=== PATIENT | female | born 1965 | race Caucasian/White ===

== ENCOUNTER 2016-12-08 08:14 | Day surgery (SDC) | payer OTHER ==
[~2016-12-08] VITALS: Ht 162.6 cm; Wt 67.1 kg
[~2016-12-08 08:14] MED LIST: ATENOLOL50 MG PO; ATIVAN1 MG PO; BABY ASPIRIN81 M1 PO; BRINTELLIX10 MG PO; CALCIUM +D & M1 EACH; CALTRATE 600 +1 EAC1 PO; CELEBREX200 MG PO; CYANOCOBAL1000 MCG/2 IM; CYMBALTA60 MG PO; FISH OIL 1,0001 EAC7 PO; FLEXERIL10 MG PO; LEXAPRO5 MG PO; LYRICA50 MG PO; METHADONE HCL40 MG PO; METHADONE10 MG PO; NEURONTIN400 MG PO; PRILOSEC20 MG PO; PROMETHAZINE HC25 M1 PO; TENORMIN25 MG PO
== END 2016-12-08 10:20 | disposition home or self-care (01) ==
LOC: PAIN 08:14 → SDC 09:00 → PAIN 09:00
PROC: 01583ZZ Destruction of Thoracic Nerve, Percutaneous Approach (ICD-10-PCS; principal; 2016-12-08)
DX: M47.894 Other spondylosis, thoracic region (principal); M47.893 Other spondylosis, cervicothoracic region; F41.1 Generalized anxiety disorder; I10 Essential (primary) hypertension; M54.12 Radiculopathy, cervical region; M79.1 Myalgia
CPT/HCPCS: J1030; J2250; J3010; S0020

== ENCOUNTER 2016-12-15 07:26 | Day surgery (SDC) | payer OTHER | END 2016-12-15 09:42 | disposition home or self-care (01) | LOC: PAIN 07:26 → SDC 08:00 → PAIN 09:42 | PROC: 015B3ZZ Destruction of Lumbar Nerve, Percutaneous Approach (ICD-10-PCS; principal; 2016-12-15) | DX: M47.812 Spondylosis without myelopathy or radiculopathy, cervical region (principal); M54.2 Cervicalgia; I10 Essential (primary) hypertension; F31.9 Bipolar disorder, unspecified; Z87.898 Personal history of other specified conditions; G56.00 Carpal tunnel syndrome, unspecified upper limb; F10.20 Alcohol dependence, uncomplicated; F17.210 Nicotine dependence, cigarettes, uncomplicated; Z91.09 Other allergy status, other than to drugs and biological substances | CPT/HCPCS: J1030; J2250; J3010; S0020 ==

== ENCOUNTER 2018-02-20 08:05 | Day surgery (SDC) | payer OTHER ==
[~2018-02-20] VITALS: Ht 162.6 cm; Wt 64.4 kg
[~2018-02-20 08:05] MED LIST changes: +CYMBALTA30 MG PO; +DOLOPHINE HCL10 MG PO; +LYRICA75 MG PO; +MULTIPLE VITAM1 EAC4 PO; +OMEPRAZOLE40 M1 PO; -PRILOSEC20 MG PO; +SKELAXIN800 MG PO; +TENORMIN50 MG PO
== END 2018-02-20 09:40 | disposition home or self-care (01) ==
LOC: PAIN 08:05
DX: M47.814 Spondylosis without myelopathy or radiculopathy, thoracic region (principal); M47.812 Spondylosis without myelopathy or radiculopathy, cervical region; M54.12 Radiculopathy, cervical region; G89.21 Chronic pain due to trauma; M19.90 Unspecified osteoarthritis, unspecified site; F17.200 Nicotine dependence, unspecified, uncomplicated; M47.816 Spondylosis without myelopathy or radiculopathy, lumbar region; M50.90 Cervical disc disorder, unspecified, unspecified cervical region; Z79.891 Long term (current) use of opiate analgesic; F10.21 Alcohol dependence, in remission
CPT/HCPCS: J1030; J1885; J2250; S0020

== ENCOUNTER 2018-02-27 07:56 | Day surgery (SDC) | payer OTHER ==
[~2018-02-27] VITALS: Ht 162.6 cm; Wt 64.4 kg
== END 2018-02-27 10:35 | disposition home or self-care (01) ==
LOC: PAIN 07:56 → SDC 08:30 → PAIN 08:30
PROC: 3E0T3TZ Introduction of Destructive Agent into Peripheral Nerves and Plexi, Percutaneous Approach (ICD-10-PCS; principal; 2018-02-27)
PROC: BR141ZZ Fluoroscopy of Cervical Facet Joint(s) using Low Osmolar Contrast (ICD-10-PCS; principal; 2018-02-27)
DX: M47.812 Spondylosis without myelopathy or radiculopathy, cervical region (principal); M50.90 Cervical disc disorder, unspecified, unspecified cervical region; M47.814 Spondylosis without myelopathy or radiculopathy, thoracic region; M47.816 Spondylosis without myelopathy or radiculopathy, lumbar region; M54.16 Radiculopathy, lumbar region; M53.3 Sacrococcygeal disorders, not elsewhere classified; I10 Essential (primary) hypertension; F41.9 Anxiety disorder, unspecified; F10.21 Alcohol dependence, in remission; F17.200 Nicotine dependence, unspecified, uncomplicated
CPT/HCPCS: J1030; J2250; S0020

== ENCOUNTER 2018-05-15 13:47 | Emergency (ER) | payer OTHER ==
[~2018-05-15] VITALS: Ht 162.6 cm; Wt 65.3 kg
[2018-05-15 16:10] VITALS: BP 196/90
== END 2018-05-15 16:12 | disposition home or self-care (01) ==
LOC: EME 13:47
DX: M62.830 Muscle spasm of back (principal); M54.5 Low back pain; G89.29 Other chronic pain; Z88.5 Allergy status to narcotic agent
CPT/HCPCS: 99281; 99283; J1100; J1885

== ENCOUNTER 2018-06-12 09:23 | Day surgery (SDC) | payer OTHER ==
[~2018-06-12] VITALS: Ht 162.6 cm; Wt 64.4 kg
[~2018-06-12 09:23] MED LIST changes: +FLECTOR 1.3%1 PATC1 TD
[2018-06-15] MEDS ORDERED: YUVAFEM10 MCG VG (10:40)
== END 2018-06-12 11:30 | disposition home or self-care (01) ==
LOC: PAIN 09:23 → SDC 10:00 → PAIN 11:30
DX: M47.812 Spondylosis without myelopathy or radiculopathy, cervical region (principal); M54.12 Radiculopathy, cervical region; M79.1 Myalgia; M47.816 Spondylosis without myelopathy or radiculopathy, lumbar region; M47.814 Spondylosis without myelopathy or radiculopathy, thoracic region; I10 Essential (primary) hypertension; F10.21 Alcohol dependence, in remission; F17.200 Nicotine dependence, unspecified, uncomplicated; Z79.891 Long term (current) use of opiate analgesic
CPT/HCPCS: J1030; J2250; J3010; S0020

== ENCOUNTER 2018-06-19 08:42 | Day surgery (SDC) | payer OTHER ==
[~2018-06-19] VITALS: Ht 162.6 cm; Wt 64.4 kg
[~2018-06-19 08:42] MED LIST changes: +YUVAFEM10 MCG VG
== END 2018-06-19 10:50 | disposition home or self-care (01) ==
LOC: PAIN 08:42 → SDC 09:00 → PAIN 09:00
PROC: 3E0T3TZ Introduction of Destructive Agent into Peripheral Nerves and Plexi, Percutaneous Approach (ICD-10-PCS; principal; 2018-06-19)
PROC: B01B0ZZ Fluoroscopy of Spinal Cord using High Osmolar Contrast (ICD-10-PCS; principal; 2018-06-19)
DX: M47.812 Spondylosis without myelopathy or radiculopathy, cervical region (principal); M50.90 Cervical disc disorder, unspecified, unspecified cervical region; M79.1 Myalgia; F17.200 Nicotine dependence, unspecified, uncomplicated; Z91.048 Other nonmedicinal substance allergy status; Z88.8 Allergy status to other drugs, medicaments and biological substances
CPT/HCPCS: J1030; J2250; J3010; S0020